=== PATIENT | male | born 1960 | race Caucasian/White ===

== ENCOUNTER 2023-04-07 10:03 | Outpatient (CLI) | payer MEDICARE, OTHER, SELFPAY ==
--- NOTE | 2023-04-07 10:21 | XR_ITS ---
WS: [id number] Exam: XR chest 2V* [id number] Date/Time of Exam: 04/07/2023 10:32 AM Reason For Exam: WHEEZING No priors. The lungs are clear and fully expanded. Normal cardiomediastinal silhouette. Bony structures are inta ct. Mild eventration of the RIGHT diaphragm. IMPRESSION: 1. No acute cardiopulmonary process.
[2023-04-07 10:31] LABS: Basophils # 0.1 10^3/uL (0.0-0.1); Basophils % 0.7 %; Eosinophils # 0.8 10^3/uL (0.0-0.8); Hematocrit 44.6 % (37-53); Lymphocytes % 30.8 %; Mean Corpuscular HGB Conc 34.1 g/dL (30-55); Mean Corpuscular Hemoglobin 32.1 pg (27-33); Mean Corpuscular Volume 94.3 fl (82-101); Mean Platelet Volume 10.2 fL (7.4-10.4); Monocytes # 0.8 10^3/uL (0.2-0.9); Monocytes % 8.3 %; Neutrophils # 5.08 10^3/uL (1.8-7.7); Neutrophils % 51.9 %; Nucleated Red Blood Cells % 0 %; Platelet Count 426 10^3/cmm (157-399); Red Blood Count 4.73 10^6/uL (3.85-5.65); Red Cell Distribution Width 12.4 % (12.1-15.1); White Blood Count 9.79 10^3/uL (3.29-11.43)
[2023-04-07 10:55] LABS: Alanine Aminotransferase 30 U/L (0-41); Albumin Level 4.8 g/dL (3.5-5.2); Alkaline Phosphatase 97 U/L (40-130); Aspartate Amino Transferase 27 U/L (0-40); Blood Urea Nitrogen 30 mg/dL (8-23); Calcium 9.5 mg/dL (8.5-10.5); Carbon Dioxide 26 mmol/L (22-29); Chloride 101 mmol/L (98-107); Chol HDL Ratio 7.45 mg/dL (1.0-5.00); Cholesterol 298 mg/dL (0-200); Globulin 2.8 g/dL (1.3-4.6); Glomerular Filtration Rate 38.1 mL/min (90-130); Glucose 107 mg/dL (65-115); HDL Cholesterol 40 mg/dL (60-100); LDL Cholesterol Calculated 192 mg/dL (50-129); Osmolality Calculated 291 mOsm/kg (285-295); Sodium 137 mmol/L (136-145); Total Bilirubin 1.1 mg/dL (0.15-1.2); Total Protein 7.6 g/dL (6.6-8.7); Triglycerides 332 mg/dL (0-150)
[2023-04-07 11:01] LABS: Anion Gap 13.9 (5-19); Potassium 3.9 mmol/L (3.5-5.1)
== END 2023-04-07 10:04 | disposition home or self-care (01) ==
PROVIDERS: PCP Family Medicine; Visit Provider Nurse Practitioner Family
DX: R06.2 Wheezing (principal); E78.5 Hyperlipidemia, unspecified; I12.9 Hypertensive chronic kidney disease with stage 1 through stage 4 chronic kidney disease, or unspecified chronic kidney disease; N18.2 Chronic kidney disease, stage 2 (mild)
CPT/HCPCS: 36415; 71046; 80053; 80061; 85025; 94010

== ENCOUNTER → 2023-05-24 09:35 | Outpatient (BNVA) | payer MEDICARE, OTHER, SELFPAY | PROVIDERS: PCP Family Medicine; Visit Provider Family Medicine | DX: N19 Unspecified kidney failure (principal); R06.2 Wheezing; Z23 Encounter for immunization | CPT/HCPCS: 80048 ==

== ENCOUNTER → 2023-05-31 13:26 | Outpatient (BNVA) | payer MEDICARE, OTHER, SELFPAY | PROVIDERS: PCP Family Medicine; Visit Provider Family Medicine | DX: N19 Unspecified kidney failure (principal) | CPT/HCPCS: 81000 ==

== ENCOUNTER 2023-06-07 06:16 | Outpatient (CLI) | payer MEDICARE, OTHER, SELFPAY ==
--- NOTE | 2023-06-07 07:00 | US_ITS ---
WS: [id number] RENAL ULTRASOUND HISTORY: renal failure COMPARISON: None available. TECHNIQUE: 2-D and color Doppler imaging of the kidney submitted. Right kidney: 10.5 cm x 4.7 cm x 5.1 cm. Cortex: 1.0 cm Normal size kidney. There is an exophytic nodule measuring 1.1 x 1.0 x 1.8 cm from the mid kidney. Th is is hypoechoic to the adjacent soft tissue structures but isoechoic to the renal cortex. No solid m ass otherwise. No cyst. Left kidney: 10.0 cm x 4.0 cm x 5.4 cm. Cortex: 1.1 cm Normal echogenicity with no hydronephrosis or mass. Aorta: Normal. Urinary Bladder: Moderately distended. No intraluminal filling defect. IMPRESSION: 1. No renal obstruction. 2. There is a very small exophytic mass in the mid RIGHT kidney measuring 1.1 x 1.0 x 1.8 cm. Suggest additional evaluation. This does not appear to be a simple cyst by ultrasound but is difficult to co mpletely characterize due to small size. Additional evaluation may include a 6-month follow-up renal ultrasound as this is well seen by ultrasound. Additional MRI or CT with renal mass protocol would pr ovide additional information. CT and MRI would require contrast.
== END 2023-06-07 06:17 | disposition home or self-care (01) ==
PROVIDERS: PCP Family Medicine; Visit Provider Family Medicine
DX: N19 Unspecified kidney failure (principal); N28.89 Other specified disorders of kidney and ureter
CPT/HCPCS: 76770

== ENCOUNTER → 2023-06-14 09:49 | Outpatient (BNVA) | payer MEDICARE, OTHER, SELFPAY | PROVIDERS: PCP Family Medicine; Visit Provider Internal Medicine | DX: N17.9 Acute kidney failure, unspecified (principal); E55.9 Vitamin D deficiency, unspecified; N19 Unspecified kidney failure | CPT/HCPCS: 80053; 81003; 82306; 82310; 82570; 83970; 84100; 84156; 85025 ==

== ENCOUNTER → 2023-09-01 09:42 | Outpatient (BNVA) | payer MEDICARE, OTHER, SELFPAY | PROVIDERS: PCP Family Medicine; Visit Provider Urology | DX: N28.1 Cyst of kidney, acquired (principal) | CPT/HCPCS: 82565 ==

== ENCOUNTER 2023-09-05 12:21 | Outpatient (CLI) | payer MEDICARE, OTHER, SELFPAY ==
--- NOTE | 2023-09-05 12:28 | CT_ITS ---
WS: [id number] CT ABDOMEN AND PELVIS WITH AND WITHOUT CONTRAST HISTORY: R RENAL MASS TECHNIQUE: Unenhanced 5 mm axial imaging first performed through the abdomen. Post contrast imaging t hrough the abdomen and pelvis. Oral contrast has not been provided. Sagittal and coronal reformats a re submitted. All CT scans at [facility] use at least one of these dose optimization techniqu es: automated exposure control; mA and/or kV adjustment per patient size (includes targeted exams whe re dose is matched to clinical indication); or iterative reconstruction. CONTRAST: Omnipaque 350; 95 mL IV. DLP: 2652.90 mGy.cm COMPARISON: Renal ultrasound 06/07/2023 Lung bases are clear. Heart size is normal. Small hiatal hernia. RIGHT kidney: There is a very tiny low-attenuation mass measuring 4 mm in the superior pole renal cor luís that was not identified by ultrasound. Very difficult to place a Hounsfield unit within this mass due to its small size. There is very slight increased attenuation. There is an additional 7 mm low-a ttenuation mass in the superior pole. The exophytic mass described by prior ultrasound does not appea r to enhance. This is a small 7 mm exophytic cyst from the mid kidney. No renal obstruction. Normal size LEFT kidney with no obstruction. Very tiny, 2 mm low-attenuation nodule from the lower po le. Liver and spleen are normal. Gallbladder is normal. No bile duct dilatation. Normal pancreas and adre nal glands. Moderate atherosclerotic plaque thoracic aorta with no aneurysm. Mild atherosclerosis inv olving the celiac axis and SMA. Main renal arteries are intact. There is an accessory renal artery on the LEFT. Normal stomach. No small bowel obstruction. No colon obstruction. Prior appendectomy. No significant diverticular disease. No adenopathy or free fluid. No free fluid in the pelvis. Urinary bladder is nondistended. No osseous abnormalities. IMPRESSION: 1. Previously described RIGHT cortical indeterminate lesion in the mid kidney as identified by ultra sound is a simple cyst. 2. There are 2 additional low-attenuation masses within the RIGHT kidney which are difficult to comp letely characterize due to the very small size. The smaller in the upper pole measures 4 mm. There is a 7 mm towards the more central renal pelvis which is probably a cyst. Consider yearly renal mass CT protocol. These are very difficult to completely characterize due to their small size. 3. Negative LEFT kidney. 4. Mild atherosclerosis aorta. 5. Nondistended urinary bladder.
[2023-09-05] MEDS: iohexol 350 mg/mL 500 mL Btl (per mL) IV (13:10)
== END 2023-09-05 12:22 | disposition home or self-care (01) ==
LOC: RAD 12:21
PROVIDERS: PCP Family Medicine; Visit Provider Urology
DX: N28.1 Cyst of kidney, acquired (principal); N28.89 Other specified disorders of kidney and ureter; I70.0 Atherosclerosis of aorta
CPT/HCPCS: 74178; Q9967

== ENCOUNTER → 2023-10-05 10:49 | Outpatient (BNVA) | payer MEDICARE, OTHER, SELFPAY | PROVIDERS: PCP Family Medicine; Visit Provider Urology | DX: N28.89 Other specified disorders of kidney and ureter (principal) | CPT/HCPCS: 80048 ==

== ENCOUNTER → 2024-01-26 09:58 | Outpatient (BNVA) | payer MEDICARE, OTHER, SELFPAY | PROVIDERS: PCP Family Medicine; Visit Provider Family Medicine | DX: N19 Unspecified kidney failure (principal); M19.90 Unspecified osteoarthritis, unspecified site; R06.2 Wheezing; J98.4 Other disorders of lung; I10 Essential (primary) hypertension; E03.9 Hypothyroidism, unspecified | CPT/HCPCS: 80053; 82785; 85025; 85651; 86003; 86140 ==

== ENCOUNTER 2024-02-02 09:59 | Outpatient (CLI) | payer MEDICARE, OTHER, SELFPAY | END 2024-02-02 10:00 | disposition home or self-care (01) | PROVIDERS: PCP Family Medicine; Visit Provider Family Medicine | DX: R06.2 Wheezing (principal); J98.4 Other disorders of lung; N19 Unspecified kidney failure; I10 Essential (primary) hypertension | CPT/HCPCS: 94010 ==

== ENCOUNTER → 2024-02-23 09:00 | Outpatient (BNVA) | payer MEDICARE, OTHER, SELFPAY | PROVIDERS: PCP Family Medicine; Visit Provider Family Medicine | DX: J98.4 Other disorders of lung (principal); R06.2 Wheezing | CPT/HCPCS: 71046 ==

== ENCOUNTER → 2024-03-27 09:52 | Outpatient (BNVA) | payer MEDICARE, OTHER, SELFPAY | PROVIDERS: PCP Family Medicine; Visit Provider Family Medicine | DX: I10 Essential (primary) hypertension (principal); J98.4 Other disorders of lung; N19 Unspecified kidney failure | CPT/HCPCS: 80053; 80061; 84550; 85025 ==

== ENCOUNTER → 2024-09-11 09:17 | Outpatient (BNVA) | payer MEDICARE, OTHER, SELFPAY | PROVIDERS: PCP Family Medicine; Visit Provider Family Medicine | DX: I10 Essential (primary) hypertension (principal); M19.90 Unspecified osteoarthritis, unspecified site; E78.5 Hyperlipidemia, unspecified; N19 Unspecified kidney failure; M10.9 Gout, unspecified | CPT/HCPCS: 80053; 80061; 84550; 85025 ==

== ENCOUNTER → 2025-03-05 09:16 | Outpatient (BNVA) | payer MEDICARE, BC, SELFPAY | PROVIDERS: PCP Family Medicine; Visit Provider Family Medicine | DX: Z13.6 Encounter for screening for cardiovascular disorders (principal); I10 Essential (primary) hypertension; E78.5 Hyperlipidemia, unspecified; N19 Unspecified kidney failure; M10.9 Gout, unspecified; E03.9 Hypothyroidism, unspecified; M19.90 Unspecified osteoarthritis, unspecified site | CPT/HCPCS: 80053; 80061; 84550; 85025; 86140 ==